=== PATIENT | female | born 1985 | race Caucasian/White ===

== ENCOUNTER 2020-04-04 22:00 | Inpatient (IN) | payer OTHER ==
[~2020-04-04] VITALS: Ht 165.1 cm; Wt 71.6 kg
[~2020-04-04 22:00] MED LIST changes: -ACET-683 PO; -DIBU10OI TOP; -DOCU100C16 PO; -IBUP80TA PO; -OXYTOCIN 30 UNITS IN 0.9% NaCl 500ML IV BAG (J2590) As Ordered ONE; -PROC1CRE5 TOP
[2020-04-04 22:12] VITALS: BP 132/83
[2020-04-04] MEDS ORDERED: PENICILLIN G POTASSIUM IV 5 MU in D5W MINI-BAG PLUS 100 ML IV STA (23:02)
[2020-04-04] MEDS ORDERED: LR 1,000 ML IV SCH (23:02)
[2020-04-04] MEDS ORDERED: LACTATED RINGER'S 1000 ML IV STA (23:02)
[2020-04-04] MEDS ORDERED: SIMETHICONE 80 MG CHEW TAB PO PRN (23:15)
[2020-04-04] MEDS ORDERED: ACETAMINOPHEN 500 MG TAB PO PRN (23:15)
[2020-04-04] MEDS ORDERED: MOM 30ML SUSPENSION UDC PO PRN (23:15)
[2020-04-04] MEDS ORDERED: CALCIUM CARBONATE 500 MG CHEW U/D PO PRN (23:15)
[2020-04-04] MEDS ORDERED: BUTORPHANOL 2 MG/ML INJ (J0595) IV PRN (23:15)
[2020-04-04] MEDS ORDERED: diphenhydrAMINE 25MG CAP PO PRN (23:15)
[2020-04-04] MEDS ORDERED: PROMETHAZINE INJ 25 MG/ML VIAL (J2550) IV PRN (23:15)
--- NOTE | 2020-04-04 23:19 | HPEPDOC ---
Obstetrical History & Physical General Date of Admission April 04, 2020 at 22:59 History of Present Illness Patient is a 34yo at 38.6wks by LMP c/w 9wk US with ctx. Ctx q4min and stronger since 10pm. No LOF or VB. Good FM. No headache or visual changes. 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: History of STD (chlamydia 2005) Past Medical History Medical History none Surgical History: Other (septoplasty) Family History Significant Family History: No pertinent family hx Social History Marital Status: Family situation: Spouse/partner home Psychosocial History: No pertinent psych hx Alcohol: Denies Abuse Violence Screening Have you been hit/kicked/slapp: No Have you been sexually assault: No Imunizations Tdap status: current Influenza Status: current Allergies Coded Allergies: Cat Dander (Verified Allergy, Severe, 04/04/20) MELONS (Verified Allergy, Severe, 04/04/20) Medications Scheduled No.137/Iron/Folic Acd ( Vitamin Tablet) 1 Each Tablet, 1 TAB PO DAILY Physical Examination Physical Examination GENERAL: Alert and oriented times three. BREAST: . ABDOMEN: Gravid and non-tender to touch. FETUS: Is vertex (VTX) by sterile vaginal examination (SVE), fetus is 3200gm by Darrion. HEART RATE: Regular rate and rhythm. LUNGS: Clear to auscultation (CTA). EXTREMITIES: No edema. Laboratory Data Urine Culture: No Growth Pertinent Laboratoy Data Blood Type: A+ RBC Antibody Screen: Negative HIV: Negative Hepatitis B: Negative Rapid Plasma Reagin: Nonreactive Rubella: Immune Varicella: Immune Chlamydia/Gonorrhea: Negative Group B Streptococcus: Positive Glucose Tolerance Test: 164 (85,137,115,81) Anatomy Ultrasound Ultrasound Date: Nov 23, 2019 Placenta Location: Posterior Normal Anatomy: Yes Placenta Previa: No Estimated Weight (grams): 364 Steroid Therapy Steroid Therapy: No Vaginal Examination Dilation: 4 cm Effacement: 90% Cervical Consistency: Soft Cervical Position: Middle Presentation: Cephalic presentation Assessment Variability: Moderate Accelerations: Positive Decelerations: None Tocometer Contractions: Yes Frequency: every 2-5 min. Duration: greater than 60 seconds Strength: palpated as moderate Multi-drug resistant Organism: No history of MDRO Assessment/Plan Assessment Patient is a 34yo at 38.6wks by LMP c/w 9wk US with ctx. Admit for labor and expect delivery by . Pain management per patient preference, which was discussed with her. I discussed risks of with patient of failure with section, distress, bleeding, infection, , vaginal or perineal or neighboring organ tear. Currently, fetus is reassuring. GBS is positive, need for antibiotics. Plan Admit and orient. Counselled and consented for . Diet: clear. Group B Streptococcus (GBS) positive to get PCN. Labs and intravenous (IV) per unit protocol. Counseled on Pitocin augmentation. Lactated Ringers (LR): Bolus 500 mL, then at 125 mL/hr. Anticipate normal spontaneous delivery (). C-S as appropriate. Pain mgt per patient. Em Weber MD April 04, 2020 23:19
[2020-04-04 23:55] LABS: BASO % 0.2 % (0.0-1.0); EOS % 0.2 % (0.0-3.0); HEMATOCRIT 34.3 % (36.0-47.0); LYMPH # 1.8 10^3/uL (1.5-5.0); LYMPH % 10.7 % (24.0-44.0); MEAN CORPUSCULAR HEMOGLOBIN 33.1 pg (27.0-33.0); MEAN CORPUSCULAR VOLUME 94.5 fl (80.0-96.0); MONO # 0.9 10^3/uL (0.0-0.8); MONO % 5.8 % (0.0-5.0); NEUTROPHILS # 13.5 10^3/uL (1.5-8.5); NEUTROPHILS % 82.4 % (36.0-66.0); PLATELET COUNT, AUTOMATED 289 10^3/uL (150-450); RED BLOOD COUNT 3.63 10^6/uL (4.00-5.40); WHITE BLOOD COUNT 16.3 10^3/uL (4.0-10.0)
[2020-04-05] VITALS (40 sets, daily range): BP systolic 92–131; BP diastolic 50–88
[2020-04-05] MEDS ORDERED: FENTANYL 2MCG/ML ROPIVACAINE 0.2% IN 0.9% NACL 100ML IVBAG As Ordered ONE (00:03)
[2020-04-05] MEDS ORDERED: FENTANYL/ROPIVACAINE/NACL BAG 100 ML EPIDURAL SCH (01:30)
[2020-04-05] MEDS ORDERED: diphenhydrAMINE 50MG/ML VIAL (J1200) IV PRN (01:30)
[2020-04-05] MEDS ORDERED: REFRIGERATOR IV KEYS XX PRN (01:30)
[2020-04-05] MEDS ORDERED: NALOXONE INJ 0.4MG/1ML VIAL (J2310 PER 1MG) IV PRN (01:30)
[2020-04-05] MEDS ORDERED: LACTATED RINGER'S 1000 ML IV PRN (01:30)
[2020-04-05] MEDS ORDERED: EPIDURAL/PCA KEYS XX PRN (01:30)
[2020-04-05] MEDS ORDERED: EPIDURAL COMMENT XX SCH (01:30)
[2020-04-05] MEDS ORDERED: ePHEDrine SULFATE 25 MG/5 ML(5MG/ML) SYRINGE IV PRN (01:30)
[2020-04-05] MEDS ORDERED: ONDANSETRON 4MG/2ML VIAL IV PRN ×2 (01:30→06:30)
--- NOTE | 2020-04-05 01:57 | IPNPDOC ---
Text Note Date of Service The patient was seen on 04/05/20. NOTE Called for 2minute decel in 50s after epidural placement with lowered BP. BP recovered with ephedrine along with FHR. SROM with clear. SVE 8/100/0. FHT Category 1, 130s, reactive, 1 variable decel, ctx q1-3min. A/P: Cont PCN. Expt mgt. VS,Fishbone, I+O VS, Fishbone, I+O Laboratory Tests 04/04/20 23:18 Em Weber MD April 05, 2020 01:57
[2020-04-05] MEDS ORDERED: PENICILLIN G POTASSIUM IV 2.5 MU in IV 1 EA IV SCH (03:30)
[2020-04-05] MEDS ORDERED: OXYTOCIN DRIP 30 UNITS in IV 1 EA IV SCH (06:24)
[2020-04-05] MEDS ORDERED: MOM 30ML SUSPENSION UDC PO PRN (06:30)
[2020-04-05] MEDS ORDERED: ACETAMINOPHEN 500 MG TAB PO PRN (06:30)
[2020-04-05] MEDS ORDERED: DIBUCAINE 1% OINTMENT 30GM TOP PRN (06:30)
[2020-04-05] MEDS ORDERED: ANUSOL HC CREAM 30GM TOP PRN (06:30)
[2020-04-05] MEDS ORDERED: METHYLERGONOVINE MALEATE 0.2 MG TAB PO PRN (06:30)
[2020-04-05] MEDS ORDERED: MEASLES,MUMPS,RUBELLA VACCINE INJ (MMR-II) (90707) SC SCH (06:30)
[2020-04-05] MEDS ORDERED: RHOGAM 300 MCG (1500 IU) INJ (J2790) IM SCH (06:30)
--- NOTE | 2020-04-05 06:51 | DNPDOC ---
[facility] Delivery Note Delivery Note DATE OF DELIVERY: 04/05/2020 PREDELIVERY DIAGNOSIS: 39-0/7 weeks' gestation and labor. POST DELIVERY DIAGNOSIS: Delivered. PROCEDURE: Spontaneous vaginal delivery. 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 ESTIMATED BLOOD LOSS: 250 mL. FINDINGS: 7 pound 14 ounce 3560gm boy infant, Score 8/9, nuchal cord times 0. DELIVERY SUMMARY: Patient is a 34-year-old 2 now para 1 who was admitted to labor and delivery for active labor for 12hours. Patient SROM clear around 0141. Baby boy head was delivered without difficulty over intact perineum in NENA position at 0552. The nose and mouth were bulb suctioned. No nuchal cord was noted. The shoulders were then delivered without difficulty. Infant was handed on mother's belly. Cord was then clamped x2 and cut after pulsation. Pitocin bolus was started. Perineum and vagina was inspected and found to have a left labial and left vaginal laceration. This was repaired with 2-0 chromic. The placenta was then delivered at 0607 spontaneously intact. Cord had a 3 vessel cord. EBL was 250mL. The vagina and perineum were reinspected and no further lacerations were found and hemostasis was good. Fundus was firm. Patient tolerated delivery well. Em Weber MD April 05, 2020 06:51
[2020-04-05] MEDS ORDERED: ACET-683 PO (06:57)
[2020-04-05] MEDS ORDERED: DOCU100C16 PO (06:57)
[2020-04-05] MEDS ORDERED: DIBU10OI TOP (06:57)
[2020-04-05] MEDS ORDERED: PROC1CRE5 TOP (06:57)
[2020-04-05] MEDS ORDERED: IBUP80TA PO (06:57)
[2020-04-05] MEDS: PRENATAL VITAMINS CHEWABLE TABLET PO SCH (08:13)
[2020-04-05] MEDS: DOCUSATE SODIUM 100 MG CAP PO SCH ×2 (08:13→21:06)
[2020-04-05] MEDS: IBUPROFEN 800 MG TAB PO PRN ×2 (08:14→16:24)
[2020-04-05] MEDS ORDERED: SLF 3 ML SYR IV PRN (09:00)
[2020-04-05] MEDS: SLF 3 ML SYR IV SCH (21:07)
[2020-04-06] MEDS: SLF 3 ML SYR IV SCH ×2 (05:13→14:42)
[2020-04-06 06:21] VITALS: BP 112/69
--- NOTE | 2020-04-06 06:41 | IPNPDOC ---
Progress Note Date of Service: April 06, 2020 Day#: 1 Progress Note SUBJECT: Patient is a 34-year-old 2 now Para 1 status post uncomplicated spontaneous vaginal delivery with post vaginal laceration and repair, doing well day # 1. She has been ambulating, voiding spontaneously without issue and tolerating regular diet. Breast feeding without issue. Reports lochia is li ke a normal period. Patient is ambulating well. Reports some cramping with . Having some pain. OBJECTIVE: VITAL SIGNS: Within normal limits, afebrile. GENERAL: No acute distress HEENT: MMM BREAST: Nontender, no erythema CARDIOVASCULAR EXAMINATION: RRR RESPIRATORY EXAMINATION: Bilaterally clear ABDOMINAL EXAMINATION: Soft, appropriate tenderness, nondistended, fundus -2 PERINEUM: Intact, minimal lochia EXTREMITIES: no edema, nontender ASSESSMENT: Patient is a 34-year-old 2 now Para 1 status post uncomplicated spontaneous vaginal delivery with post vaginal laceration and repair, doing well day # 1. Vitals within normal limits, afebrile, hemodynamically stable with no evidence of infection. PLAN: 1. Continue care. 2. Tylenol and Motrin for pain. 3. Encourage breast feeding and ambulation. VS, I&O, 24H, Fishbone Vital Signs/I&O Vital Signs Date Time Temp Pulse Resp B/P (MAP) Pulse Ox O2 Delivery O2 Flow Rate FiO2 04/05/20 03:56 80 100/59 (73) 04/05/20 01:38 98.6 Laboratory Data 24H LABS Laboratory Tests 2 04/04/20 23:18: Immature Granulocyte % (Auto) 0.7, Neutrophils (%) (Auto) 82.4H, Lymphocytes (%) (Auto) 10.7L, Monocytes (%) (Auto) 5.8H, Eosinophils (%) (Auto) 0.2, Basophils (%) (Auto) 0.2, Neutrophils # (Auto) 13.5H, Lymphocytes # (Auto) 1.8, Monocytes # (Auto) 0.9H, Eosinophils # (Auto) 0.0, Basophils # (Auto) 0.0, Nucleated Red Blood Cells % (auto) 0.0 04/04/20 23:30: Serology Scanned Report Hepatitis B Testing CBC/BMP Laboratory Tests 04/04/20 23:18 Em Weber MD April 05, 2020 06:53
[2020-04-06] MEDS: DOCUSATE SODIUM 100 MG CAP PO SCH ×2 (08:35→21:22)
[2020-04-06] MEDS: PRENATAL VITAMINS CHEWABLE TABLET PO SCH (08:35)
[2020-04-06] MEDS: IBUPROFEN 800 MG TAB PO PRN ×2 (08:36→16:48)
[2020-04-06 18:00] VITALS: BP 122/78
[2020-04-07 05:48] VITALS: BP 126/71
--- NOTE | 2020-04-07 07:59 | IPNPDOC ---
Progress Note Date of Service: April 07, 2020 Day#: 2 Progress Note SUBJECT: Patient is a 34 yo s/p ppd #2. Patient without concerns this AM. She has been ambulating, voiding spontaneously without issue and tolerating regular diet. Breast feeding without issue. Reports lochia is like a normal period. Baby is in NICU for cardio/pulmonary concerns. Patient is breast pumping. She plans on using paragard for contraceptive. OBJECTIVE: VITAL SIGNS: Within normal limits, afebrile. Alert and oriented times three. Abdomen: Fundus firm at U-2. Soft, NTTP. LE: no edema/erythema/tenderness A/P patient is ppd #2, doing well. baby in NICU. discharge instructions. encourage breast pumping and feeding when baby is ready. paragard can be placed 6-8wks . d/c to rooming in today. do SALOME VS, I&O, 24H, Fishbone Vital Signs/I&O Vital Signs Date Time Temp Pulse Resp B/P (MAP) Pulse Ox O2 Delivery O2 Flow Rate FiO2 04/07/20 05:48 98.5 74 20 126/71 (89) 99 Room Air JATIN MCMAHON DO April 07, 2020 07:59
--- NOTE | 2020-04-07 08:03 | OBDS ---
[facility] Obstetrical Discharge Sum. Obstetrical Discharge Summary Date: April 07, 2020 : 2 Term: 1 Pre-term: 0 Abortions: 1 Livin VDRL: Non-Reactive Rh: Positive Rubella: Immune Infant Sex: Male Infant Weight: pounds (7), ounces (14) Anesthesia: Regional Anesthesia A/P, Post Course List any complications Admission diagnosis: Labor at 38+6wks Discharge diagnosis: () Condition at Discharge: Stable Discharge Instructions: Home Activity: as tolerated Diet: regular Medications: to be picked up at [facility]. Drum Follow-up: 6-8wks Patient admitted for labor at term. Progressed to have a spontaneous vaginal delivery. course uncomplicated and patient discharged home on day #2. JATIN MCMAHON DO April 07, 2020 08:03
[2020-04-07] MEDS: DOCUSATE SODIUM 100 MG CAP PO SCH (09:41)
[2020-04-07] MEDS: PRENATAL VITAMINS CHEWABLE TABLET PO SCH (09:41)
[2020-04-07] MEDS: IBUPROFEN 800 MG TAB PO PRN (09:42)
== END 2020-04-07 15:30 | disposition home or self-care (01) | DRG 807 ==
LOC: M LDO 22:00 → M LDI 22:59 → M OBS 04-05 08:31
PROVIDERS: ADMIT Obstetrics & Gynecology; ATTEND Obstetrics & Gynecology
PROC: 10E0XZZ Delivery of Products of Conception, External Approach (ICD-10-PCS; principal; 2020-04-05)
PROC: 0HQ9XZZ Repair Perineum Skin, External Approach (ICD-10-PCS; 2020-04-05)
DX: O99.824 Streptococcus B carrier state complicating childbirth (principal); Z37.0 Single live birth; Z3A.38 38 weeks gestation of pregnancy; O70.0 First degree perineal laceration during delivery

== ENCOUNTER → 2020-04-04 | Outpatient (CLI) | payer OTHER ==
[~2020-04-04] VITALS: Ht 162.6 cm; Wt 71.0 kg
[~2020-04-04] MED LIST: ACET-683 PO; DIBU10OI TOP; DOCU100C16 PO; IBUP80TA PO; OXYTOCIN 30 UNITS IN 0.9% NaCl 500ML IV BAG (J2590) As Ordered ONE; PRENTAB9 PO; PROC1CRE5 TOP
[2020-04-04 07:01] VITALS: BP 118/59
[2020-04-04 08:21] VITALS: BP 114/74
--- NOTE | 2020-04-04 08:30 | IPNPDOC ---
Text Note Date of Service The patient was seen on 04/04/20. NOTE Patient is 34yo at 39.6wks. C/o LBP cramping. + contractions. No loss of fluid or bleeding. Good movement. PE: VS WNL GEN NAD, Comfortable SVE: 2/60/-2 FHT: Category 1, 140-150, reactive, no decels. contractions q5-10minutes. A/P: Fetus reassuring. Patient not in labor and no rupture of membranes. Patient given labor precautions, rupture of membranes precautions and kick counts. She has a follow up appt on 04/05/2020. VS,Fishbone, I+O VS, Fishbone, I+O Vital Signs Date Time Temp Pulse Resp B/P (MAP) Pulse Ox O2 Delivery O2 Flow Rate FiO2 04/04/20 07:01 97.8 76 118/59 (78) Em Weber MD April 04, 2020 08:30
== END ==
LOC: M LDO 06:46
PROVIDERS: ATTEND Obstetrics & Gynecology
DX: O26.893 Other specified pregnancy related conditions, third trimester (principal); R10.30 Lower abdominal pain, unspecified; O47.1 False labor at or after 37 completed weeks of gestation; Z3A.39 39 weeks gestation of pregnancy
CPT/HCPCS: 59025; G0378; G0463